=== PATIENT | male | born 1960 | race Caucasian/White ===

== ENCOUNTER 2017-01-29 12:51 | Emergency (ER) | payer MEDICARE | END 2017-01-29 14:10 | disposition home or self-care (01) | LOC: ER1 12:51 | DX: K11.20 Sialoadenitis, unspecified (principal); I10 Essential (primary) hypertension; J44.9 Chronic obstructive pulmonary disease, unspecified; Z87.891 Personal history of nicotine dependence | CPT/HCPCS: 99283 ==